=== PATIENT | male | born 1930 | race Caucasian/White ===

== ENCOUNTER 2016-03-31 20:44 | Inpatient (IN) | payer OTHER ==
[~2016-03-31] VITALS: Ht 160 cm; Wt 61.2 kg
[~2016-03-31 20:44] MED LIST: DOXY-216 PO; FER325T PO; TAM04C PO
[2016-03-31 22:04] LABS: BUN/Creatinine Ratio 25.9; Basophils # (auto) 0 uL; Basophils % (auto) 0.2 % (0.0-2.0); Bilirubin, Total 0.4 mg/dL (0.2-1.0); Calcium 7.5 mg/dL (8.5-10.1); DEFINITIVE VIEW TRANSMISSION; Eosinophils # (auto) 0 uL; Hematocrit 23.6 % (41.0-53.0); Hemoglobin 7.7 g/dL (13.5-17.5); Lymphocytes # (auto) 0.7 uL; Magnesium 2.4 mg/dL (1.6-2.6); Mean Corpuscular Hemoglobin 28.9 pg (28.0-32.0); Mean Corpuscular Hgb Conc. 32.5 g/dL (32.0-36.0); Mean Corpuscular Volume 88.9 fL (80.0-100.0); Mean Platelet Volume 7.2 fL (7.4-10.4); Monocytes # (auto) 0.5 uL; Neutrophils # (auto) 22.2 uL; Neutrophils % (auto) 94.8 % (37.0-80.0); Platelet Count (auto) 291 10^3/uL (140-450); Potassium 4.5 mmol/L (3.5-5.1); Red Cell Distribution Width 13.3 % (11.6-16.0); SUSPECT VIEW TRANSMISSION; Total Protein 4.8 g/dL (6.4-8.2); White Blood Cell 23.5 10^3/uL (4.4-10.8)
[2016-04-01] VITALS (12 sets, daily range): BP systolic 0–106; BP diastolic 0–61
[2016-04-01] MEDS ORDERED: SODIUM CHLORIDE 0.9% 1,000 ML IV SCH (04:27)
[2016-04-01] MEDS ORDERED: PANTOPRAZOLE SODIUM 40 MG/10 ML VIAL IV ONE (04:30)
[2016-04-01] MEDS ORDERED: ONDANSETRON HCL 4 MG/2 ML VIAL IV PRN (04:30)
[2016-04-01] MEDS ORDERED: MORPHINE SULF INJ 2 MG/ML SYRINGE 1ML IV PRN (04:30)
[2016-04-01] MEDS ORDERED: ALBUMIN 5% 250 ML IV ONE (04:30)
[2016-04-01] MEDS ORDERED: NITROGLYCERIN 0.4 MG SL TAB SL PRN (04:30)
[2016-04-01 08:15] LABS: Lactic Acid 4.1 mmol/L (0.4-2.0)
[2016-04-01 08:17] LABS: Hematocrit 22.3 % (41.0-53.0); Hemoglobin 7.2 g/dL (13.5-17.5)
[2016-04-01 08:52] LABS: REFLEX LACTIC ACID YES OR NO YES
[2016-04-01] MEDS ORDERED: cefTRIAXone 1GM/50ML D5W 50 ML IV SCH (09:00)
[2016-04-01] MEDS ORDERED: PANTOPRAZOLE SODIUM 40 MG/10 ML VIAL IV SCH (10:00)
[2016-04-01 10:09] LABS: Urine Bilirubin Negative (Negative); Urine Blood 2+ /uL (Negative); Urine Color Yellow (Yellow); Urine Glucose Normal (Normal); Urine Ketone Negative (Negative); Urine Mucus FEW (None Seen); Urine Nitrite Negative (Negative); Urine RBC 296 /hpf (0 - 3); Urine Squamous Epithelial Cell FEW /hpf (<5); Urine Urobilinogen Normal (Negative); Urine WBC Clumps PRESENT /hpf (None Seen); Urine pH 5.5 (5.0-8.0)
[2016-04-01 11:03] LABS: REFLEX LACTIC ACID YES OR NO YES
== END 2016-04-01 18:00 | disposition expired | DRG 377 ==
LOC: EDBD 20:44 → ER 20:53 → TELE 20:54
PROVIDERS: ADMIT Nurse Practitioner; ATTEND Internal Medicine
PROC: 30233N1 Transfusion of Nonautologous Red Blood Cells into Peripheral Vein, Percutaneous Approach (ICD-10-PCS; principal; 2016-04-01)
DX: K92.1 Melena (principal); E43 Unspecified severe protein-calorie malnutrition; N17.9 Acute kidney failure, unspecified; N13.8 Other obstructive and reflux uropathy; E78.5 Hyperlipidemia, unspecified; K92.0 Hematemesis; M19.90 Unspecified osteoarthritis, unspecified site; N40.1 Benign prostatic hyperplasia with lower urinary tract symptoms; I12.9 Hypertensive chronic kidney disease with stage 1 through stage 4 chronic kidney disease, or unspecified chronic kidney disease; N13.9 Obstructive and reflux uropathy, unspecified; N18.9 Chronic kidney disease, unspecified; D64.9 Anemia, unspecified; R74.8 Abnormal levels of other serum enzymes; Z87.440 Personal history of urinary (tract) infections; Z68.23 Body mass index [BMI] 23.0-23.9, adult
CPT/HCPCS: 36415; 71010; 80053; 81001; 82270; 83605; 83735; 84484; 85014; 85018; 85025; 86850; 86900; 86901; 86920; 87040; 93005; 94761; 96361; 96365; 96366; 96367; 96375; C9113; J0696